=== PATIENT | male | born 1990 | race African-American/Black ===

== ENCOUNTER 2018-05-25 10:33 | Emergency (ER) | payer OTHER, SELFPAY ==
[2018-05-25 10:42] VITALS: BP 121/81; PULSE 81; RESP 16; TEMP 37; O2SAT 100
[2018-05-25 12:08] LABS: Abs Immature Grans 0.01 k/cumm (0.0-0.09); Absolute Basophil Count 0.02 k/cumm (0.0-0.2); Absolute Eosinophil Count 0.01 k/cumm (0.0-0.7); Absolute Lymphocyte Count 1.45 k/cumm (1.2-3.4); Absolute Monocyte Count 0.47 k/cumm (0.11-0.7); Absolute Neutrophil Count 3.02 k/cumm (1.2-6.7); Basophils % 0.4; Eosinophils % 0.2; HCT 37.9 % (40.0-50.0); HGB 12.6 g/dL (13.5-17.5); Immature Grans % 0.2; Lymphocytes % 29.1; Mean Corp. HGB Concentration 33.2 g/dL (32.0-36.0); Mean Corpuscular Hemoglobin 30.3 pg (27.0-33.0); Mean Corpuscular Volume 91.1 fL (80-95); Mean Platelet Volume 10.1 fL (8.0-11.0); Monocytes % 9.4; Neutrophils % 60.7; Platelet Count 212 x1000/uL (130-400); RBC 4.16 m/cumm (4.50-6.00); White Blood Cell Count 4.98 k/cumm (4.4-10.8)
[2018-05-25] MEDS: Ketorolac 30 MG/ML VIAL IVP (12:12)
[2018-05-25 12:13] LABS: Bilirubin Negative (Negative); Blood Negative (Negative); Clarity Clear; Glucose Negative (Negative); Ketones Negative (Negative); Leukocyte Esterase Negative (Negative); Nitrite Negative (Negative); Specific Gravity 1.015 (1.005-1.025)
[2018-05-25] MEDS: Ondansetron 4 MG/2 ML VIAL IVP (12:13)
[2018-05-25 12:24] LABS: ALT 91 U/L (12-78); AST 27 U/L (15-37); Alkaline Phosphatase 101 U/L (46-116); Anion Gap 7.5 mmol/L (3-11); BUN 12 mg/dL (7-18); Bilirubin, Direct 0.23 mg/dL (0.00-0.20); Bilirubin, Total 0.9 mg/dL (0.2-1.0); CO2 28.5 mmol/L (21.0-32.0); CREATININE 0.82 mg/dL (0.70-1.30); Calcium 9.2 mg/dL (8.5-10.1); Chloride 104 mmol/L (98-107); Glucose 90 mg/dL (70-100); Lipase 128 U/L (73-393); Magnesium 2.1 mg/dL (1.8-2.4); Potassium 3.9 mmol/L (3.5-5.1); Sodium 140 mmol/L (136-145); Total Protein 7.5 g/dL (6.4-8.2)
[2018-05-25 12:27] LABS: Troponin I < 0.02 ng/mL (0.00-0.06)
[2018-05-25] MEDS: Omnipaque 350 MG/ML 100 ML BTL IJ (12:37)
--- NOTE | 2018-05-25 12:45 | DI.CT_ITS ---
SYMPTOM/DIAGNOSIS: ABD PAIN, LOSS OF APPETITE, H/O PE CHEST, ABDOMEN AND PELVIC CT: ABDOMEN AND PELVIS: There are no priors for comparison. There is patient motion artifact. The liver is normal in size and appearance. No hepatic mass is seen. There is non opacification of the portal vein and superior mesenteric vein. The findings raise the question of a venous thrombus. The gallbladder is negative. No biliary ductal dilatation is seen. There is no evidence of a pancreatic mass. There is inflammatory stranding seen in in the region of the head of the pancreas and the first and second portions of the duodenum. The splenic vein is patent. The spleen and adrenal glands are unremarkable. The kidneys show normal and symmetric enhancement. No evidence of obstruction or solid mass is seen. The urinary bladder is intact. The reproductive organs are unremarkable. There is a moderate amount of stool in the colon. No evidence of a bowel obstruction is seen. Apart from the findings around the duodenum, the bowel is unremarkable. No findings to suggest an acute appendicitis are present. There is a normal appendix present in the right lower quadrant. There is a small amount of free fluid in the pelvis. No focal fluid collection is seen to suggest an abscess. No pneumoperitoneum is seen. No significant abdominal or pelvic adenopathy is present. The abdominal aorta is of normal caliber. The bones are intact. IMPRESSION: Suspected thrombus involving the portal vein and the superior mesenteric vein. Abdominal ultrasound is recommended for further evaluation. Inflammatory changes around the head of the pancreas and first and second portions of the duodenum. Differential considerations include pancreatitis or duodenitis. Please correlate with the patient's clinical exam. Small amount of pelvic ascites. These findings were discussed with the ER on the date of the examination. CHEST: CT angiography was performed with multi slice acquisition and multi planar and 3D reconstruction. CT scan of the chest was performed according to the pulmonary embolus protocol. There is no evidence of a pulmonary embolus. The thoracic aorta is of normal caliber. No dissection or aneurysm is seen. Heart size is within normal limits. No significant pericardial effusion is seen. No findings to suggest right ventricular dysfunction are present. There is no mediastinal adenopathy. No pleural effusion or pneumothorax is identified. Paraseptal emphysematous changes are present in the lungs. No focal infiltrates are seen. The tracheobronchial tree is unremarkable. The bones are intact. IMPRESSION: No evidence of a pulmonary embolus, thoracic aortic dissection or aneurysm. The findings were discussed with Ifeanyi Portillo of the ER on the date of the examination.
[2018-05-25] MEDS: MORPHine 10 MG/ML VIAL 4 MG IVP (13:06)
[2018-05-25 13:15] VITALS: BP 113/66; PULSE 76; RESP 16; TEMP 36.9; O2SAT 100
--- NOTE | 2018-05-25 13:49 | DI.US_ITS ---
SYMPTOM/DIAGNOSIS: ABD PAIN ABDOMEN ULTRASOUND: Comparison CT is from the same day. The aorta and IVC are unremarkable. No evidence of a hepatic mass is seen. The gallbladder is negative. No biliary ductal dilatation is seen. The pancreatic tail was not well visualized. The remainder of the pancreas is unremarkable. The spleen and kidneys are unremarkable. There is no observable flow within the main portal vein. There was antegrade flow seen within portion of the splenic vein. IMPRESSION: Absence of flow within the main portal vein suspicious for portal vein thrombus. The findings were discussed with Ifeanyi Portillo of the ER on the date of the examination.
[2018-05-25 14:56] VITALS: BP 121/78; PULSE 81; RESP 17; TEMP 36.9
[2018-05-25] MEDS: MORPHine 10 MG/ML VIAL 2 MG IVP ×2 (15:06→18:36)
[2018-05-25 15:42] LABS: INR 1.1 (1.0-3.5); PTT Activated 22.3 sec (21.0-31.4); Prothrombin Time 10.5 sec (9.3-10.8)
--- NOTE | 2018-05-25 16:57 | W.ED.GENAD ---
Discharge Plan Disposition Patient Disposition: HOSPITAL, NON-SPECIFIC Condition: Stable Discharge Details Chief Complaint: Abd Prob Clinical Impression: Portal vein thrombosis Primary Care Provider: NONE,NONE ED Provider: Teto Portillo Home Meds and New Rx's Prescriptions: No Action No Known Home Meds RF: 0 Discharge Data Discharge Date/Time-TO BE ENTERED AT DEPARTURE: 05/25/18 19:45 Medical Decision Making Patient presenting to the emergency department with chief complaint of abdominal pain. Patient states over the past week he has had progressive worsening abdominal pain that initially started in the epigastrium radiating to the back. Initially they thought it was either a pulled muscle or a gastric ulcer but over the past 24 hours he states severe worsening of symptoms. Patient denies any nausea or vomiting but does state that he has not been able to eat anything. Patient states severe pain. Patient reports history of pulmonary embolism that required lengthy admission when he was 17 years old. Patient states that he has not been on any other meds and took anticoagulation for approximately 1 year before they discontinued his medications. Physical exam shows significant and severe tenderness to palpation of the abdomen which is diffuse and nonfocal with some guarding to palpation. Patient does have mild CVA tenderness on the left otherwise no other acute findings noted plan to check labs, and CT imaging of the chest abdomen pelvis with PE study. Pending results patient given Zofran, ketorolac, and IV fluids Review of labs shows mild increase of bilirubin and ALT otherwise are nondiagnostic. Patient also does have a mild anemia. Patient was reassessed and continued to have discomfort so 4 mg of morphine was ordered. Review of CT imaging and discussion with radiologist shows concerning findings of possible portal vein thrombosis so recommendation for ultrasound was given. Orders were placed. Patient remained stable Review of ultrasound imaging shows concerning findings of portal vein thrombosis. Patient started on heparin PE DVT protocol spoke with GI specialist Dr. Gardner at [facility] in regards to patient care. He stated that heparinizing patient is appropriate and patient should be admitted to medical surgical unit for bridge to Lovenox or other anticoagulation. Given the patient has no signs of cirrhosis he stated that he would recommend hematology consult for patient when appropriate after acutely managed. He stated that there was no bed availability at their facility but stated appropriate for regional facility. Patient continued to have discomfort so 2 mg morphine was given. After pain control again patient was able to tolerate p.o. intake. Given that we had no bed availability I called and talk with Dr. Andrews at [facility] whom accepted the patient in transfer as long as patient had [employer] guards with him at all times. Spoke with correctional officers in regards to arrangement of this accommodations. Correctional officers were able to obtain appropriate paperwork and staffing so transfer paperwork was completed and patient was transferred by [facility]. Patient remained stable throughout emergency department stay Lab Data Lab results reviewed: Yes I reviewed the patient's lab results. HPI General Mode of arrival: ambulatory. Date/Time Provider Initiated Documentation: 05/25/18 10:50. Limitations to Documentation: no limitations. Information obtained by: patient. History of Present Illness described as severe, with intensity rated at 9. Quality is described as aching and sharp, and is localized to the abdomen. Patient reports radiation to back. Patient started experiencing this week(s) (1) and it has been constant. No relieving factors improve symptom(s), No exacerbating factors reported . Related Data Home Medications Medication Instructions Recorded Confirmed Unknown [No Known Home Meds] 05/25/18 05/25/18 Allergies Allergy/AdvReac Type Severity Reaction Status Date / Time No Known Allergies Allergy Unverified 05/25/18 10:45 General Stated Complaint: Abd Prob RUDY: 3 Review of Systems Constitutional Denies chills, Denies fever(s) and Reports poor appetite Cardiovascular Denies chest pain and Denies dyspnea Respiratory Denies dyspnea Gastrointestinal Reports as per HPI, Reports abdominal pain, Denies melena, Denies change in bowel habits, Denies constipation, Denies diarrhea, Reports nausea and Reports vomiting Genitourinary Denies hematuria, Denies difficulty urinating, Denies urinary hesitancy, Denies urinary incontinence and Denies urinary urgency Integumentary/Breasts Denies rash [facility] Social History Smoking/Tobacco Use Status: Former Tobacco Use Exam Const General: cooperative Orientation: alert, awake and oriented x3 Resp Effort & Inspection: normal respiratory effort and able to speak in complete sentences Auscultation: clear to auscultation bilaterally Cardio Rate: regular rate Rhythm: regular rhythm Heart Sounds: S1 normal and S2 normal GI Inspection: normal to inspection and non-distended Palpation: soft, no hepatosplenomegaly, firm, guarding, no hepatomegaly, no hernias, no masses, no pulsatile masses, not rigid, no splenomegaly and tender (difuse) Auscultation: normal bowel sounds Back/Spine/Pelvis Back: no CVA tenderness Neuro General: alert, awake, oriented x3, gait normal and moves all extremities Course Vital Signs Temperature 37.0 C 05/25/18 10:42 Pulse 81 05/25/18 10:42 Respiratory Rate 16 05/25/18 10:42 Blood Pressure 121/81 05/25/18 10:42 Pulse Oximetry 100 05/25/18 10:42 Temperature 36.9 C 05/25/18 14:56 Temperature Source Temporal Artery Scan 05/25/18 14:56 Pulse 81 05/25/18 14:56 Respiratory Rate 17 05/25/18 14:56 Respiratory Effort 05/25/18 10:43 Blood Pressure 121/78 05/25/18 14:56 Pulse Oximetry 100 05/25/18 13:15 Oxygen Delivery Method Room Air 05/25/18 14:56 Oxygen Flow Rate 0 05/25/18 14:56 Pain Level 6 05/25/18 15:06 Lab/Test Results Lab/Test Results: Laboratory Tests Range/Units 05/25/18 05/25/18 05/25/18 12:00 12:00 12:08 WBC (4.4-10.8) k/cumm 4.98 RBC (4.50-6.00) m/cumm 4.16 L Hgb (13.5-17.5) g/dL 12.6 L Hct (40.0-50.0) % 37.9 L MCV (80-95) fL 91.1 MCH (27.0-33.0) pg 30.3 MCHC (32.0-36.0) g/dL 33.2 RDW (11.8-14.1) % 12.0 Plt Count (130-400) x1000/uL 212 MPV (8.0-11.0) fL 10.1 Immature Gran % 0.2 Neutrophils % 60.7 Lymphocytes % 29.1 Monocytes % 9.4 Eosinophils % 0.2 Basophils % 0.4 Absolute Neutrophils (1.2-6.7) k/cumm 3.02 Absolute Lymphocytes (1.2-3.4) k/cumm 1.45 Absolute Monocytes (0.11-0.7) k/cumm 0.47 Absolute Eosinophils (0.0-0.7) k/cumm 0.01 Absolute Basophils (0.0-0.2) k/cumm 0.02 PT (9.3-10.8) sec INR (1.0-3.5) APTT (21.0-31.4) sec Sodium (136-145) mmol/L 140 Potassium (3.5-5.1) mmol/L 3.9 Chloride (98-107) mmol/L 104 Carbon Dioxide (21.0-32.0) mmol/L 28.5 Anion Gap (3-11) mmol/L 7.5 BUN (7-18) mg/dL 12 Creatinine (0.70-1.30) mg/dL 0.82 Estimated GFR/1.73 m2 (mL/min/1.73m2) >= 60.00 Glucose (70-100) mg/dL 90 Calcium (8.5-10.1) mg/dL 9.2 Magnesium (1.8-2.4) mg/dL 2.1 Total Bilirubin (0.2-1.0) mg/dL 0.9 Conjugated Bilirubin (0.00-0.20) mg/dL 0.23 H AST (15-37) U/L 27 ALT (12-78) U/L 91 H Alkaline Phosphatase (46-116) U/L 101 Troponin I (0.00-0.06) ng/mL < 0.02 Total Protein (6.4-8.2) g/dL 7.5 Albumin (3.4-5.0) g/dL 3.0 L Lipase (73-393) U/L 128 Urine Color (Yellow) Yellow Urine Clarity Clear Urine pH (5-8) 7.0 Ur Specific [place] (1.005-1.025) 1.015 Urine Protein (Negative) mg/dL Negative Urine Ketones (Negative) mg/dL Negative Urine Blood (Negative) Negative Urine Nitrite (Negative) Negative Urine Bilirubin (Negative) Negative Urine Urobilinogen (Up TO 0.2) EU/dL 2.0 H Ur Leukocyte Esterase (Negative) Negative Urine Glucose (Negative) mg/dL Negative Range/Units 05/25/18 15:17 WBC (4.4-10.8) k/cumm RBC (4.50-6.00) m/cumm Hgb (13.5-17.5) g/dL Hct (40.0-50.0) % MCV (80-95) fL MCH (27.0-33.0) pg MCHC (32.0-36.0) g/dL RDW (11.8-14.1) % Plt Count (130-400) x1000/uL MPV (8.0-11.0) fL Immature Gran % Neutrophils % Lymphocytes % Monocytes % Eosinophils % Basophils % Absolute Neutrophils (1.2-6.7) k/cumm Absolute Lymphocytes (1.2-3.4) k/cumm Absolute Monocytes (0.11-0.7) k/cumm Absolute Eosinophils (0.0-0.7) k/cumm Absolute Basophils (0.0-0.2) k/cumm PT (9.3-10.8) sec 10.5 INR (1.0-3.5) 1.1 APTT (21.0-31.4) sec 22.3 Sodium (136-145) mmol/L Potassium (3.5-5.1) mmol/L Chloride (98-107) mmol/L Carbon Dioxide (21.0-32.0) mmol/L Anion Gap (3-11) mmol/L BUN (7-18) mg/dL Creatinine (0.70-1.30) mg/dL Estimated GFR/1.73 m2 (mL/min/1.73m2) Glucose (70-100) mg/dL Calcium (8.5-10.1) mg/dL Magnesium (1.8-2.4) mg/dL Total Bilirubin (0.2-1.0) mg/dL Conjugated Bilirubin (0.00-0.20) mg/dL AST (15-37) U/L ALT (12-78) U/L Alkaline Phosphatase (46-116) U/L Troponin I (0.00-0.06) ng/mL Total Protein (6.4-8.2) g/dL Albumin (3.4-5.0) g/dL Lipase (73-393) U/L Urine Color (Yellow) Urine Clarity Urine pH (5-8) Ur Specific [place] (1.005-1.025) Urine Protein (Negative) mg/dL Urine Ketones (Negative) mg/dL Urine Blood (Negative) Urine Nitrite (Negative) Urine Bilirubin (Negative) Urine Urobilinogen (Up TO 0.2) EU/dL Ur Leukocyte Esterase (Negative) Urine Glucose (Negative) mg/dL
[2018-05-25 16:58] LABS: Lactate-non-spesis 0.7 mmol/L (0.6-1.4)
--- NOTE | 2018-05-25 17:00 | ED.GENADUL_ITS ---
Discharge Plan Disposition Patient Disposition: HOSPITAL, NON-SPECIFIC Condition: Stable Discharge Details Chief Complaint: Abd Prob Clinical Impression: Portal vein thrombosis Primary Care Provider: NONE,NONE ED Provider: Teto Portillo Home Meds and New Rx's Prescriptions: No Action No Known Home Meds RF: 0 Discharge Data Discharge Date/Time-TO BE ENTERED AT DEPARTURE: 05/25/18 19:45 Medical Decision Making Patient presenting to the emergency department with chief complaint of abdominal pain. Patient states over the past week he has had progressive worsening abdominal pain that initially started in the epigastrium radiating to the back. Initially they thought it was either a pulled muscle or a gastric ulcer but over the past 24 hours he states severe worsening of symptoms. Patient denies any nausea or vomiting but does state that he has not been able to eat anything. Patient states severe pain. Patient reports history of pulmonary embolism that required lengthy admission when he was 17 years old. Patient states that he has not been on any other meds and took anticoagulation for approximately 1 year before they discontinued his medications. Physical exam shows significant and severe tenderness to palpation of the abdomen which is diffuse and nonfocal with some guarding to palpation. Patient does have mild CVA tenderness on the left otherwise no other acute findings noted plan to check labs, and CT imaging of the chest abdomen pelvis with PE study. Pending results patient given Zofran, ketorolac, and IV fluids Review of labs shows mild increase of bilirubin and ALT otherwise are nondiagnostic. Patient also does have a mild anemia. Patient was reassessed and continued to have discomfort so 4 mg of morphine was ordered. Review of CT imaging and discussion with radiologist shows concerning findings of possible portal vein thrombosis so recommendation for ultrasound was given. Orders were placed. Patient remained stable Review of ultrasound imaging shows concerning findings of portal vein thrombosis. Patient started on heparin PE DVT protocol spoke with GI specialist Dr. Gardner at [facility] in regards to patient care. He stated that heparinizing patient is appropriate and patient should be admitted to medical surgical unit for bridge to Lovenox or other anticoagulation. Given the patient has no signs of cirrhosis he stated that he would recommend hematology consult for patient when appropriate after acutely managed. He stated that there was no bed availability at their facility but stated appropriate for regional facility. Patient continued to have discomfort so 2 mg morphine was given. After pain control again patient was able to tolerate p.o. intake. Given that we had no bed availability I called and talk with Dr. Andrews at [facility] whom accepted the patient in transfer as long as patient had [employer] guards with him at all times. Spoke with correctional officers in regards to arrangement of this accommodations. Correctional officers were able to obtain appropriate paperwork and staffing so transfer paperwork was completed and patient was transferred by [employer]. Patient remained stable throughout emergency department stay Lab Data Lab results reviewed: Yes I reviewed the patient's lab results. HPI General Mode of arrival: ambulatory . Date/Time Provider Initiated Documentation: 05/25/18 10:50 . Limitations to Documentation: no limitations . Information obtained by: patient . History of Present Illness described as severe, with intensity rated at 9. Quality is described as aching and sharp, and is localized to the abdomen. Patient reports radiation to back. Patient started experiencing this week(s) (1) and it has been constant. No relieving factors improve symptom(s), No exacerbating factors reported . Related Data Home Medications Medication Instructions Recorded Confirmed Unknown [No Known Home Meds] 05/25/18 05/25/18 Allergies Allergy/AdvReac Type Severity Reaction Status Date / Time No Known Allergies Allergy Unverified 05/25/18 10:45 General Stated Complaint: Abd Prob RUDY: 3 Review of Systems Constitutional Denies chills, Denies fever(s) and Reports poor appetite Cardiovascular Denies chest pain and Denies dyspnea Respiratory Denies dyspnea Gastrointestinal Reports as per HPI, Reports abdominal pain, Denies melena, Denies change in bowel habits, Denies constipation, Denies diarrhea, Reports nausea and Reports vomiting Genitourinary Denies hematuria, Denies difficulty urinating, Denies urinary hesitancy, Denies urinary incontinence and Denies urinary urgency Integumentary/Breasts Denies rash [facility] Social History Smoking/Tobacco Use Status: Former Tobacco Use Exam Const General: cooperative Orientation: alert, awake and oriented x3 Resp Effort & Inspection: normal respiratory effort and able to speak in complete sentences Auscultation: clear to auscultation bilaterally Cardio Rate: regular rate Rhythm: regular rhythm Heart Sounds: S1 normal and S2 normal GI Inspection: normal to inspection and non-distended Palpation: soft, no hepatosplenomegaly, firm, guarding, no hepatomegaly, no hernias, no masses, no pulsatile masses, not rigid, no splenomegaly and tender ( difuse) Auscultation: normal bowel sounds Back/Spine/Pelvis Back: no CVA tenderness Neuro General: alert, awake, oriented x3, gait normal and moves all extremities Course Vital Signs Temperature 37.0 C 05/25/18 10:42 Pulse 81 05/25/18 10:42 Respiratory Rate 16 05/25/18 10:42 Blood Pressure 121/81 05/25/18 10:42 Pulse Oximetry 100 05/25/18 10:42 Temperature 36.9 C 05/25/18 14:56 Temperature Source Temporal Artery Scan 05/25/18 14:56 Pulse 81 05/25/18 14:56 Respiratory Rate 17 05/25/18 14:56 Respiratory Effort 05/25/18 10:43 Blood Pressure 121/78 05/25/18 14:56 Pulse Oximetry 100 05/25/18 13:15 Oxygen Delivery Method Room Air 05/25/18 14:56 Oxygen Flow Rate 0 05/25/18 14:56 Pain Level 6 05/25/18 15:06 Lab/Test Results Lab/Test Results: Laboratory Tests Range/Units 05/25/18 05/25/18 05/25/18 12:00 12:00 12:08 WBC (4.4-10.8) k/cumm 4.98 RBC (4.50-6.00) m/cumm 4.16 L Hgb (13.5-17.5) g/dL 12.6 L Hct (40.0-50.0) % 37.9 L MCV (80-95) fL 91.1 MCH (27.0-33.0) pg 30.3 MCHC (32.0-36.0) g/dL 33.2 RDW (11.8-14.1) % 12.0 Plt Count (130-400) x1000/uL 212 MPV (8.0-11.0) fL 10.1 Immature Gran % 0.2 Neutrophils % 60.7 Lymphocytes % 29.1 Monocytes % 9.4 Eosinophils % 0.2 Basophils % 0.4 Absolute Neutrophils (1.2-6.7) k/cumm 3.02 Absolute Lymphocytes (1.2-3.4) k/cumm 1.45 Absolute Monocytes (0.11-0.7) k/cumm 0.47 Absolute Eosinophils (0.0-0.7) k/cumm 0.01 Absolute Basophils (0.0-0.2) k/cumm 0.02 PT (9.3-10.8) sec INR (1.0-3.5) APTT (21.0-31.4) sec Sodium (136-145) mmol/L 140 Potassium (3.5-5.1) mmol/L 3.9 Chloride (98-107) mmol/L 104 Carbon Dioxide (21.0-32.0) mmol/L 28.5 Anion Gap (3-11) mmol/L 7.5 BUN (7-18) mg/dL 12 Creatinine (0.70-1.30) mg/dL 0.82 Estimated GFR/1.73 m2 (mL/min/1.73m2) >= 60.00 Glucose (70-100) mg/dL 90 Calcium (8.5-10.1) mg/dL 9.2 Magnesium (1.8-2.4) mg/dL 2.1 Total Bilirubin (0.2-1.0) mg/dL 0.9 Conjugated Bilirubin (0.00-0.20) mg/dL 0.23 H AST (15-37) U/L 27 ALT (12-78) U/L 91 H Alkaline Phosphatase (46-116) U/L 101 Troponin I (0.00-0.06) ng/mL < 0.02 Total Protein (6.4-8.2) g/dL 7.5 Albumin (3.4-5.0) g/dL 3.0 L Lipase (73-393) U/L 128 Urine Color (Yellow) Yellow Urine Clarity Clear Urine pH (5-8) 7.0 Ur Specific [place] (1.005-1.025) 1.015 Urine Protein (Negative) mg/dL Negative Urine Ketones (Negative) mg/dL Negative Urine Blood (Negative) Negative Urine Nitrite (Negative) Negative Urine Bilirubin (Negative) Negative Urine Urobilinogen (Up TO 0.2) EU/dL 2.0 H Ur Leukocyte Esterase (Negative) Negative Urine Glucose (Negative) mg/dL Negative Range/Units 05/25/18 15:17 WBC (4.4-10.8) k/cumm RBC (4.50-6.00) m/cumm Hgb (13.5-17.5) g/dL Hct (40.0-50.0) % MCV (80-95) fL MCH (27.0-33.0) pg MCHC (32.0-36.0) g/dL RDW (11.8-14.1) % Plt Count (130-400) x1000/uL MPV (8.0-11.0) fL Immature Gran % Neutrophils % Lymphocytes % Monocytes % Eosinophils % Basophils % Absolute Neutrophils (1.2-6.7) k/cumm Absolute Lymphocytes (1.2-3.4) k/cumm Absolute Monocytes (0.11-0.7) k/cumm Absolute Eosinophils (0.0-0.7) k/cumm Absolute Basophils (0.0-0.2) k/cumm PT (9.3-10.8) sec 10.5 INR (1.0-3.5) 1.1 APTT (21.0-31.4) sec 22.3 Sodium (136-145) mmol/L Potassium (3.5-5.1) mmol/L Chloride (98-107) mmol/L Carbon Dioxide (21.0-32.0) mmol/L Anion Gap (3-11) mmol/L BUN (7-18) mg/dL Creatinine (0.70-1.30) mg/dL Estimated GFR/1.73 m2 (mL/min/1.73m2) Glucose (70-100) mg/dL Calcium (8.5-10.1) mg/dL Magnesium (1.8-2.4) mg/dL Total Bilirubin (0.2-1.0) mg/dL Conjugated Bilirubin (0.00-0.20) mg/dL AST (15-37) U/L ALT (12-78) U/L Alkaline Phosphatase (46-116) U/L Troponin I (0.00-0.06) ng/mL Total Protein (6.4-8.2) g/dL Albumin (3.4-5.0) g/dL Lipase (73-393) U/L Urine Color (Yellow) Urine Clarity Urine pH (5-8) Ur Specific [place] (1.005-1.025) Urine Protein (Negative) mg/dL Urine Ketones (Negative) mg/dL Urine Blood (Negative) Urine Nitrite (Negative) Urine Bilirubin (Negative) Urine Urobilinogen (Up TO 0.2) EU/dL Ur Leukocyte Esterase (Negative) Urine Glucose (Negative) mg/dL
[2018-05-25 17:06] VITALS: BP 133/73; PULSE 85; RESP 17; TEMP 37.2; O2SAT 99
[2018-05-25 18:56] VITALS: BP 132/81; PULSE 82; RESP 16; TEMP 37.3; O2SAT 100
== END 2018-05-25 19:45 | disposition short-term general hospital (02) ==
PROVIDERS: Emergency Provider Nurse Practitioner Family
DX: I81 Portal vein thrombosis (principal); Z86.711 Personal history of pulmonary embolism
CPT/HCPCS: 36415; 71275; 74177; 80053; 80076; 83690; 93005; 96365; 96366; 96374; 96375; 96376; 99285; 76700; 81003; 83605; 83735; 84484; 85025; 85610; 85730; 93010; J1885; J2270; J2405; J3490